=== PATIENT | female | born 1975 | race Caucasian/White ===

== ENCOUNTER 2019-05-02 13:28 | Observation (INO) | payer BC ==
[~2019-05-02] VITALS: Ht 170.2 cm; Wt 86.2 kg
[2019-05-02 13:49] VITALS: BP 143/78
[2019-05-02] MEDS ORDERED: PRILOSEC OTC20 MG PO (13:52)
[2019-05-02] MEDS ORDERED: SPIRONOLACTONE25 MG PO (13:53)
[2019-05-02 14:01] LABS: HEMATOCRIT 42.3 % (37.0-47.0); HEMOGLOBIN 14.4 gm/dL (12.0-15.0); MCH 32.1 pg (26.0-34.0); MCHC 34.1 g/dL (28.0-37.0); MCV 93.9 fL (80.0-100.0); MPV 8.3 fl. (7.2-11.1); NUCLEATED RBCS 0 /100WBC; PLATELET COUNT* 434 thou/uL (150-400); RDW-CV 12.8 % (10.5-14.5); WBC 18.6 thou/uL (4.0-11.0)
[2019-05-02 14:03] LABS: URINE BILIRUBIN NEGATIVE (Negative); URINE BLOOD NEGATIVE (Negative); URINE CLARITY CLEAR; URINE COLOR YELLOW; URINE GLUCOSE-RANDOM NEGATIVE (Negative); URINE KETONES NEGATIVE (Negative); URINE LEUKOCYTES-REFLEX TRACE (Negative); URINE NITRITE-REFLEX NEGATIVE (Negative); URINE PROTEIN TRACE (Negative); URINE SPECIFIC GRAVITY 1.015 (1.005-1.030); URINE UROBILINOGEN 0.2 E.U./dl (0.2-1.0)
[2019-05-02 14:10] LABS: CALCIUM 9.4 mg/dL (8.5-10.1); POTASSIUM 4.5 mmol/L (3.5-5.1)
[2019-05-02 14:14] LABS: ALBUMIN 4.1 g/dL (3.4-5.0); TOTAL BILIRUBIN 0.2 mg/dL (<0.1-1.0); TOTAL PROTEIN 8.3 g/dL (6.4-8.2)
[2019-05-02 14:15] LABS: BACTERIA-REFLEX 1-9 Few /HPF (None Seen); CASTS None Seen /LPF (None Seen); CRYSTALS None Seen /LPF (None Seen); SQUAMOUS 0-3 Few /LPF (0-3); URINE RBC 0-2 Rare /HPF (0-2); URINE WBC-REFLEX 0-5 Rare /HPF (0-5)
[2019-05-02 14:52] LABS: ABSOLUTE LYMPHOCYTES 1.5 thou/uL (0.8-5.3); ABSOLUTE MONOCYTES 1.1 thou/uL (0.0-1.2); PLATELET ESTIMATE ADEQUATE
[2019-05-02 23:08] VITALS: BP 122/73
[2019-05-03 03:00] VITALS: BP 115/67
[2019-05-03 03:45] LABS: CALCIUM 7.9 mg/dL (8.5-10.1); CREATININE 0.8 mg/dL (0.6-1.3); MAGNESIUM 1.6 mg/dL (1.8-2.4); POTASSIUM 3.7 mmol/L (3.5-5.1)
[2019-05-03 06:43] VITALS: BP 109/59
[2019-05-03 07:47] VITALS: BP 125/79
[2019-05-03] MEDS ORDERED: ZOFRAN ODT4 MG PO (08:56)
[2019-05-03] MEDS ORDERED: CIPRO500 M1 PO (08:56)
[2019-05-03 09:07] VITALS: BP 125/79
--- NOTE | 2019-05-03 09:35 | NUR ---
PATIENT ADMITTED TO 113 FROM ER PER BED. REPORT RECD FROM SUPERVISOR [employer]. PATIENT DENIES PAIN, N/V/D AT THIS TIME. IN TO SEE PATIENT. IV FLUIDS INFUSING W/O DIFF. DISCHARGE ORDERS REC'D. DISCHARGE INSTRUCTIONS REVIEWED W/ PATIENT, DTR PRESENT. PATIENT STATES VERBALLY OF UNDERSTANDING. COPY OF INSTRUCTIONS AND ORIG SCRIPT GIVEN TO PATIENT. IV DISCONTINUED, CATH TIP INTACT. COTTON BALL/TAPE APPLIED TO SITE. PATIENT DRESSES INDEP. BELONGINGS GATHERED PER PATIENT/DTR. PATIENT/DTR ESCORTED OFF UNIT PER PEDIS, NOTED STEADY GAIT. DENIES OTHER NURSING NEEDS AT THIS TIME. NO S/S ACUTE DISTRESS NOTED. ~TJRN
[2019-05-03 10:18] VITALS: BP 125/79
--- NOTE | 2019-05-03 11:17 | EKG ---
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: : 1975 Requested By: Lorraine Tolbert Order Number: [id number] MD: Sanjeev Garcia Measurements Intervals [place] Rate: 89 P: [place]: QRS: 80 QRSD: 101 T: 71 QT: 393 QTc: 479 Interpretive Statements Sinus rhythm with sinus arrhythmia Low voltage, precordial leads Borderline T abnormalities, lateral leads Baseline wander in lead(s) V6 No previous ECG available for comparison Electronically Signed On 05-03-2019 11:16:32 CABLE WIRER by Sanjeev Garcia [email or web address] <ELECTRONICALLY SIGNED> By: Sanjeev Garcia MD, FAC 05/03/19 1116 1623 1623 Sanjeev Garcia MD, [facility] /EPI
== END 2019-05-03 09:35 | disposition home or self-care (01) ==
LOC: M.ERS 13:28 → M.TBA-ER 15:43 → M.ORTHSURG 15:43 → M.TBA-ER 19:01 → M.ORTHSURG 05-03 08:00
PROVIDERS: Physician Assistant; ADMIT Internal Medicine
DX: A09 Infectious gastroenteritis and colitis, unspecified (principal); R58 Hemorrhage, not elsewhere classified; R65.10 Systemic inflammatory response syndrome (SIRS) of non-infectious origin without acute organ dysfunction; K21.9 Gastro-esophageal reflux disease without esophagitis

== ENCOUNTER → 2019-05-08 | Outpatient (CLI) | payer BC ==
[~2019-05-08] MED LIST: CIPRO500 M1 PO; PRILOSEC OTC20 MG PO; SPIRONOLACTONE25 MG PO; ZOFRAN ODT4 MG PO
== END ==
LOC: M.CT 10:00
DX: N28.1 Cyst of kidney, acquired (principal); N83.291 Other ovarian cyst, right side; K56.41 Fecal impaction; Z90.710 Acquired absence of both cervix and uterus